=== PATIENT | female | born 1945 ===

== ENCOUNTER 2018-06-14 13:06 | Inpatient (IN) | payer MEDICARE, MEDICAID ==
--- NOTE | 2018-06-14 13:46 | ED PDOC ---
HPI: Psych/Substance Abuse Time Seen by Provider: 06/14/18 13:16 Chief Complaint (Nursing): Psychiatric Evaluation Chief Complaint (Provider): Psychiatric Evaluation History Per: Patient, Family (daughter at bedside) History/Exam Limitations: no limitations Onset/Duration Of Symptoms: Days (x1 month approximately) Current Symptoms Are (Timing): Still Present Additional Complaint(s): 73 year old female presents to the ED via EMS with daughter Julienne for a psychiatric evaluation. Patient states she does not want to use a sales support assistant and wants her daughter to translate, as patient is only Italian speaking. She notes she has been depressed for the past month with auditory hallucinations and negative thoughts telling her that her son is in danger and will , preventing her from sleeping at night. Patient reports "feeling down inside" lately. As per daughter, since 06/04 patient has been having intermittent 3-4 hour episodes of forgetfulness and "it seems as if she's zoned out." On 06/04 patient was seen at [facility] for these symptoms and had normal CT head, urine studies, and bloodwork and was subsequently discharged. She states patient followed up with her PMD 06/10/18 and was prescribed Lexapro, without relief of symptoms. Today, daughter additionally reports that the cable man came to their house and patient thought the man was trying to kidnap her grandson, so she called 911 on him. This episode prompted daughter to bring in patient for evaluation today. Otherwise, denies physical complaints, suicidal ideation, homicidal ideation, and visual hallucinations. PMD: [facility] Past Medical History Reviewed: Historical Data, Nursing Documentation, Vital Signs Vital Signs: Last Vital Signs Temp 98.6 F 06/14/18 13:08 Pulse 97 H 06/14/18 13:08 Resp 18 06/14/18 13:08 BP 168/84 H 06/14/18 13:08 Pulse Ox 97 06/14/18 13:08 - Medical History PMH: Depression (possible), HTN, Hypercholesterolemia - Surgical History Other surgeries: knee replacements - Family History Family History: States: Unknown Family Hx - Social History Current smoker - smoking cessation education provided: No Alcohol: None Drugs: Denies - Home Medications Home Medications: Ambulatory Orders Medication Instructions Recorded Escitalopram [Lexapro] 10 mg PO HS 06/14/18 Lisinopril/Hydrochlorothiazide 1 tab PO DAILY 06/14/18 [Lisinopril-Hctz 20-25 mg Tab] Simvastatin [Zocor] 20 mg PO HS 06/14/18 - Allergies Allergies/Adverse Reactions: Allergies Allergy/AdvReac Type Severity Reaction Status Date / Time No Known Allergies Allergy Verified 06/14/18 13:14 Review of Systems ROS Statement: Except As Marked, All Systems Reviewed And Found Negative Neurological: Positive for: Confusion (as per daughter, 3-4 hours at a time) Psych: Positive for: Depression, Other (auditory hallucinations, no visual hallucinations). Negative for: Suicidal ideation (or homicidal ideation) Physical Exam - Reviewed Nursing Documentation Reviewed: Yes Vital Signs Reviewed: Yes - Physical Exam Comments: GENERAL APPEARANCE: Patient is awake, alert, oriented x 3, in no acute distress. Resting comfortably. SKIN: Warm, dry; (-) cyanosis ENMT: Mucous membranes moist. Airway patent: (-) stridor. NECK: Supple HEART AND CARDIOVASCULAR: (-) irregularity CHEST AND RESPIRATORY: (-) rales, (-) rhonchi, (-) wheezes; breath sounds equal. Respirations even and nonlabored. ABDOMEN: Soft, (-) distention, (-) tenderness, (-) guarding. NEURO AND PSYCH: Mental status as above. fight manager: Grossly intact. Pupils equal and reactive; EOMI; (-) facial asymmetry. Speech: clear. Affect: calm, cooperative. - Laboratory Results Result Diagrams: 06/14/18 15:00 06/14/18 15:00 - ECG O2 Sat by Pulse Oximetry: 97 (RA) Pulse Ox Interpretation: Normal Medical Decision Making Medical Decision Making: Time: 1335 Initial Impression: psychiatric evaluation Initial Plan: --Crisis evaluation --Re-evaluation 1345 Crisis at bedside. 1420 Per crisis evaluation, patient to be admitted for dementia, depression, and an xiety per Dr Field. Additional orders placed for medical clearance. 1540 Patient resting comfortably on re-evaluation and requesting food tray. Daughter remains at bedside. EKG: ST @ 101, QTc 430 1610 Patient reporting increased anxiety. Patient hypertensive in ED although daughter at bedside states patient took her Lisinopril dose today. Labs demonstrate hyponatremia and hypochloremia. Case discussed with ED MD Salvador who recommends treatment with Lopressor 25mg PO. Lopressor and Xanax 0.25mg PO ordered. Consult placed to med credit and collections analyst, Dr Helton, who recommends admission to STEP floor with him on consult. Pending urine for medical clearance and repeat vitals. CXR: no acute disease as read by Javier MELVIN 1700 U/A with small leukocytes, (-) nitrate. Keflex 500mg PO and urine culture o rdered. Utox (-). 1725 [facility] resident, Dr Hoskins, at bedside. CXR radiology report follows: Date of service: 06/14/2018 HISTORY: psych admit COMPARISON: No prior. FINDINGS: LUNGS: No active pulmonary disease. PLEURA: No significant pleural effusion identified, no pneumothorax apparent. CARDIOVASCULAR: No atherosclerotic calcification present No radiographic findings to suggest acute or significant cardiovascular disease. OSSEOUS STRUCTURES: No significant abnormalities. VISUALIZED UPPER ABDOMEN: Normal. OTHER FINDINGS: None. IMPRESSION: No active disease. 1810 Repeat HR: 82 Repeat BP: 166/80 Patient is medically stable for psychiatric admission. Arrangements made for admission. Scribe Attestation: Documented by Vonda Rivas, acting as a scribe for Irena Herrera PA-C Provider Scribe Attestation: All medical record entries made by the Scribe were at my direction and personally dictated by me. I have reviewed the chart and agree that the record accurately reflects my personal performance of the history, physical exam, medical decision making, and the department course for this patient. I have also personally directed, reviewed, and agree with the discharge instructions and disposition. Disposition - Clinical Impression Clinical Impression: Depression, Dementia, Anxiety, Hyponatremia, Hypochloremia, Elevated blood pressure reading, Hypertension, UTI (urinary tract infection) - Patient ED Disposition Is Patient to be Admitted: Yes Counseled Patient/Family Regarding: Studies Performed, Diagnosis - Disposition Disposition Time: 14:20 Condition: STABLE - Pt Status Changed To: Hospital Disposition Of: Inpatient - Admit Certification Admit to Inpatient:: After my assessment, the patient will require hospitalization for at least two midnights. This is because of the severity of symptoms shown, intensity of services needed, and/or the medical risk in this patient being treated as an outpatient. - POA Present On Arrival: None
[2018-06-14 15:18] LABS: BASO % 0.5 % (0.0-2.0); EOS % 0.3 % (0.0-4.0); HEMOGLOBIN 13.2 g/dL (12.0-16.0); LYMPH # 1.2 K/uL (1.0-4.3); LYMPH % 11.4 % (20.0-40.0); MEAN CELL VOLUME 87.3 fl (81.0-99.0); MEAN CORPUSCULAR HEMOGLOBIN 29.8 pg (27.0-31.0); MEAN CORPUSCULAR HGB CONC 34.1 g/dL (33.0-37.0); MEAN PLATELET VOLUME 10.3 fl (7.2-11.7); MONO # 0.6 K/uL (0.0-0.8); MONO % 5.7 % (0.0-10.0); NEUT # 8.3 K/uL (1.8-7.0); NEUT % 82.1 % (50.0-75.0); RBC 4.43 Mil/uL (3.80-5.20); WHITE BLOOD COUNT 10.1 K/uL (4.8-10.8)
[2018-06-14 15:27] LABS: ALB/GLOB RATIO 1.3 (1.0-2.1); ALBUMIN 4.4 g/dL (3.5-5.0); ALT/SGPT 13 U/L (9-52); AST/SGOT 30 U/L (14-36); BLOOD UREA NITROGEN 18 mg/dl (7-17); CALCIUM 9.7 mg/dL (8.4-10.2); GFR NON-AFRICAN AMERICAN > 60
[2018-06-14 16:35] LABS: SQUAMOUS EPITHIAL 1 /hpf (0-5); URINE BACTERIA FEW (<OCC); URINE BILIRUBIN NEGATIVE (NEGATIVE); URINE BLOOD NEGATIVE (NEGATIVE); URINE CLARITY CLEAR (Clear); URINE COLOR YELLOW (YELLOW); URINE GLUCOSE (UA) NEG (NEGATIVE); URINE LEUKOCYTE ESTERASE SMALL Leu/uL (Negative); URINE PROTEIN NEGATIVE (NEGATIVE); URINE UROBILINOGEN 0.2-1.0 mg/dL (0.2-1.0)
[2018-06-14 16:45] LABS: BENZODIAZEPINES, UR NEGATIVE (NEGATIVE)
[2018-06-14 16:48] LABS: BARBITURATES, UR NEGATIVE (NEGATIVE); OPIATES, UR NEGATIVE (NEGATIVE); PHENCYCLIDINE, UR NEGATIVE (NEGATIVE)
--- NOTE | 2018-06-14 17:44 | RAD ---
Date of service: 06/14/2018 HISTORY: psych admit COMPARISON: No prior. FINDINGS: LUNGS: No active pulmonary disease. PLEURA: No significant pleural effusion identified, no pneumothorax apparent. CARDIOVASCULAR: No atherosclerotic calcification present No radiographic findings to suggest acute or significant cardiovascular disease. OSSEOUS STRUCTURES: No significant abnormalities. VISUALIZED UPPER ABDOMEN: Normal. OTHER FINDINGS: None. IMPRESSION: No active disease.
[2018-06-14 19:38] VITALS: O2SAT 97
[2018-06-14] MEDS ORDERED: Bismuth Subsalicylate 262 mg/15 ml Sus (240 ml) PO PRN (19:47)
[2018-06-14] MEDS ORDERED: Magnesium Hydroxide Susp 30 ml UD PO PRN (19:47)
[2018-06-14] MEDS ORDERED: Alum-Mag Hydrox-Simethicone Susp (30 mL) PO PRN (19:47)
--- NOTE | 2018-06-14 22:06 | PCM.BM ---
<CalebMichaelGiovani - Last Filed: 06/14/18 22:04> Treatment Plan Problems - Problems identified on initial assessmt Anxiety Date Initiated: 06/14/18 Time Initiated: 22:04 Assessment reference: NA Status: Active Altered Sleep Patterns Date Initiated: 06/14/18 Time Initiated: 22:05 Assessment reference: NA Status: Active Psychosis Date Initiated: 06/14/18 Time Initiated: 22:06 Assessment reference: NA Status: Active Treatment assets and liabiliti Patient Assests: cooperative, good support system, negotiates basic needs Patient Liabilities: imparied memory - Milieu Protocol Maintain good personal hygiene: every shift Encourage regular showers, every shift Remind patient to perform daily oral care, every shift Assist patient to perform ADL's Conduct patient checks and document Observation sheet: Q15 minutes Maintain personal safety: every shift Educate patient to report safety concerns to staff, every shift Monitor environment for contraband/sharps Medication safety: Monitor for expected outcome, potential side effects: every shift, Assess barriers to learning: every shift, Assess readiness for medication education: every shift <Marguerite Field - Last Filed: 06/15/18 11:28> - Diagnosis (1) Major depressive disorder with psychotic features Status: Acute Interventions: Medication management, Individual and group therapy, Psychoeducation 06/15/18 11:28 <Christel Umaña - Last Filed: 06/15/18 15:52> Family Contact Family involvement: Family/SO is involved Family contact: Patient agrees to contact, Family has been contacted by patient, Telephone contact initiated by staff Family contact name: Liz - daughter Family contacted how many times per week?: 2 - Goals for Treatment Patient goals for treatment: Pt will improve overall behvaior. Pt will reduce anxiety and improve coping skills. Pt will attend clinical/activity groups. Pt will be compliant with medications prescribed on the unit. Discharge/Continuing Care - Education Needs Education Needs: Family Medication, Family Diagnosis/Disease Process, Family Coping Skills, Family Placement options, Family Community resources, Family Activities of Daily Living, Family Health Practices/Safety, Family Personal Hygiene/Grooming, Family Aftercare Safety Plan, Patient Medication, Patient Diagnosis/Disease Process, Patient Coping Skills, Patient Placement options, Patient Community resources, Patient Activities of Daily Living, Patient Health Practices/Safety, Patient Personal Hygiene/Grooming, Patient Aftercare Safety Plan - Discharge Discharge Criteria: Tolerates medication w/o severe side effects, Free of paranoid thoughts, Free of agitation, Normal sleep pattern, Reduction of target symptoms Discharge to:: Home, With Family - Additional Comments 06/15/18 15:44 Pt seen and discussed in team meeting. Reason for hospitalization reviewed and discussed. Pt reported she was referred to the ED after she called the police. Pt reported she called the police because she felt anxious and in danger. Pt reported that she felt "trapped with all of my problems." Pt reported that her daughter, Delma in [place] is currently incarcerated because of drug trafficking and her daughter, Liz has been abusing substance abuses because "she is weird with me." Pt also reported that a cable david came to the home on 06/14/2018 and he was trying to "pressure my grandson." Pt reported she felt like her grandson was in danger and she called the police. Pt also reported that her grandson is being "touched" in school by other peers in a playful way, but he does not like it. Pt presents with increased paranoia. Pt reported feeling depressed because "of all my problems." Pt reported hearing voices, but refused to state what they are saying to her. Pt denied command auditory hallucinations. Pt presented with flight of ideas and circumstantial. Pt was tearful when talking about her grandson. Pt's medical issues reviewed and discussed. Pt's social issues reviewed. Pt's current medications reviewed by treating physician. Tx plan reviewed and discussed; pt verbalized agreement. SW to continue to follow case. Pt signed consent form for SW to contact pt's son and daughter fr collateral information. - Treatment Team Participation Discussed with Family/SO: Yes Was Patient/Family/SO present at Treatment Team Meeting: Yes
[2018-06-15 06:49] LABS: ALB/GLOB RATIO 1.4 (1.0-2.1); ALBUMIN 4.2 g/dL (3.5-5.0); ALT/SGPT 20 U/L (9-52); AST/SGOT 30 U/L (14-36); BLOOD UREA NITROGEN 15 mg/dl (7-17); CALCIUM 9.8 mg/dL (8.4-10.2); GFR NON-AFRICAN AMERICAN > 60; HDL CHOLESTEROL 43 MG/DL (30-70)
[2018-06-15 06:54] LABS: LDL CHOLESTEROL 95 mg/dL (0-129)
[2018-06-15 07:00] LABS: IRON 87 ug/dL (37-170)
[2018-06-15 07:09] LABS: % IRON SATURATION 26 % (20-55); TOTAL IRON BINDING CAPACITY 334 ug/dL (250-450)
[2018-06-15 07:18] LABS: FERRITIN 86.6 ng/Ml (11.1-264.0)
--- NOTE | 2018-06-15 08:41 | CARD ---
APPROVED REPORT Date of service: 06/14/2018 EKG Measurement Heart [id number] <Conclusion> Sinus tachycardia Possible Left atrial enlargement Nonspecific ST-T changes Abnormal ECG
[2018-06-15] MEDS ORDERED: Tmp-Smz 800 mg-160 mg DS Tab PO SCH (09:00)
--- NOTE | 2018-06-15 09:41 | PCM.PSYCH ---
Initial Psychiatric Evaluation - Initial Psychiatric Evaluation Type of Admission: Voluntary Legal Status: Capacity Chief Complaint (in patient's own words): "I was worried about my grandson." Patient's Reaction to Hospitalization: HPI: 73 yo female w/ h/o depression, presents w/ worsening depression, anxiety, and paranoia that someone wants to harm her grandson and recent auditory hallucinations. She denies acute AH/VH, but continues to express concerns for the safety of her grandson. She denies acute CAH/SI/HI. Patient reports compliance with Lexapro, which was prescribed by her PMD. Patient submitted a 48 hr letter requesting to be discharged. She is agreeable to outpatient follow-up and wants to leave to help care for her grandchild. Team will obtain collateral history from the family. PPHx: Denies past psychiatric treatment or hospitalizations. Receives Lexapro from her PMD. PMHx: HTN, HLD ALL: NKDA SHx: Lives with her family, from [place], denies drugs/etoh/cig use Current Medications: Active Medications Generic Name Dose Route Start Last Admin Trade Name Freq PRN Reason Stop Dose Admin Acetaminophen 650 mg 06/14/18 19:47 Tylenol 325mg Tab PO Q4 PRN Pain, moderate (4-7) Al Hydrox/Mg Hydrox/Simethicone 30 ml 06/14/18 19:47 Maalox Plus 30 Ml PO Q4 PRN Dyspepsia Amlodipine Besylate 5 mg 06/15/18 09:00 06/15/18 08:36 Norvasc PO 5 mg DAILY KELBY Administration Bismuth Subsalicylate 524 mg 06/14/18 19:47 Pepto-Bismol PO Q4 PRN Diarrhea Lisinopril 20 mg 06/15/18 09:00 06/15/18 08:37 Zestril PO 20 mg DAILY KELBY Administration Lorazepam 0.5 mg 06/14/18 19:47 Ativan PO 06/28/18 19:48 HS PRN Insomnia Lorazepam 0.5 mg 06/14/18 19:47 Ativan PO 06/28/18 19:48 Q6 PRN Anixety/Agitation Magnesium Hydroxide 30 ml 06/14/18 19:47 Milk Of Magnesia PO HS PRN Constipation Risperidone 0.5 mg 06/14/18 22:00 06/14/18 22:42 Risperdal Tab PO 0.5 mg HS KELBY Administration Past Psychiatric History - Past Psychiatric History Previous Treatment History: None Pertinent Medical Hx (Current Medical&Sleep Prob, Allergies): Allergies Allergy/AdvReac Type Severity Reaction Status Date / Time No Known Allergies Allergy Verified 06/14/18 13:14 Escitalopram [Lexapro] 10 mg PO HS 06/14/18 Lisinopril/Hydrochlorothiazide [Lisinopril-Hctz 20-25 mg Tab] 1 tab PO DAILY 06/14/18 Simvastatin [Zocor] 20 mg PO HS 06/14/18 Review of Systems - Psychiatric Psychiatric: As Per HPI, Anxiety, Behavioral Changes, Change in Appetite, Depression, Difficulty Concentrating, Hallucinations, Memory Loss, Paranoia Mental Status Examination - Personal Presentation Personal Presentation: Looks stated age - Affect Affect: Constricted - Motor Activity Motor Activity: Calm - Reliability in Providing Information Reliability in Providing Information: Fair - Speech Speech: Other (Circumstantial) - Mood Mood: Depressed, Anxious - Formal Thought Process Formal Thought Process: Paranoia - Obsessions/Compulsions Obsessions: No Compulsions: No - Cognitive Functions Orientation: Person, Place, Situation, Time Sensorium: Alert Judgement: Imparied, as evidence by: Lack of insight into illness Memory: Recent intact, as evidence by: Ability to recall events of the day - Risk Risk: Diminished functioning - Strength & Assets Inventory Strength & Assets Inventory: Cooperative - Limitations Limitations: Decreased memory, recent DSM 5 DX - DSM 5 DSM 5 Diagnosis: Major Depressive Disorder w/ Psychotic Features - Recommended/Plan of Treatment Treatment Recommendations and Plan of Treatment: Major Depressive Disorder with Psychotic Features -Admit to psychiatry unit -Continue Lexapro -Start Risperdal -Obtain collateral history from the patient's family -Medicine consult -Individual and group therapy -Psychoeducation -Disposition planning- patient submitted a 48 hr letter yesterday - Smoking Cessation Smoking Cessation Initiated: No Reason for not providing: Not indicated
--- NOTE | 2018-06-15 11:12 | CP.PCM.CON ---
<Jenelle Hoskins - Last Filed: 06/15/18 11:43> History of Present Illness - History of Present Illness History of Present Illness: Medicine Consult note: This is 73 y/o F with PMH of HTN, HLD and childhood kidney infection admitted to [facility]/ [facility] for evaluations and treatment of Anxiety/Psychosis. As per daughter, since 06/04 patient has been having intermittent 3-4 hour episodes of forgetfulness and "it seems as if she's zoned out." On 06/04 patient was seen at [facility] for these symptoms and had normal CT head, urine studies, and bloodwork and was subsequently discharged. She states patient followed up with her PMD 06/10/18 and was prescribed Lexapro, without relief of symptoms. As per daughter patient was behaving very unusual today, + Anxiety, + psychosis which prompted ER visit. Patient denies any SOB, chest pain, headache, palpitations, dizziness, abdominal pain, dysuria, suicidal ideation, homicidal ideation, or visual hallucinations. PMH: HTN, HLD and childhood kidney infection PSH: Knee replacement Allg: NKDA Meds: Statin, Lisinopril-HCTZ, lexapro SH: denies alcohol, smoking or drug use FH: Denies Past Patient History - Past Social History Alcohol: None Drugs: Denies - CARDIAC Hx Hypercholesterolemia: Yes Hx Hypertension: Yes - PULMONARY Hx Tuberculosis: No - NEUROLOGICAL HX Cerebrovascular Accident: No Hx Seizures: No - HEMATOLOGICAL/ONCOLOGICAL Hx Cancer: No Hx Human Immunodeficiency Virus (HIV): No - MUSCULOSKELETAL/RHEUMATOLOGICAL Hx Falls: Yes - GENITOURINARY/GYNECOLOGICAL Hx Sexually Transmitted Disorders: No - PSYCHIATRIC Hx Depression: Yes (possible) - ANESTHESIA Hx Anesthesia: No Hx Anesthesia Reactions: No Meds Allergies/Adverse Reactions: Allergies Allergy/AdvReac Type Severity Reaction Status Date / Time No Known Allergies Allergy Verified 06/14/18 13:14 - Medications Medications: Current Medications Acetaminophen (Tylenol 325mg Tab) 650 mg PO Q4 PRN PRN Reason: Pain, moderate (4-7) Al Hydrox/Mg Hydrox/Simethicone (Maalox Plus 30 Ml) 30 ml PO Q4 PRN PRN Reason: Dyspepsia Amlodipine Besylate (Norvasc) 5 mg PO DAILY [facility] Last Admin: 06/15/18 08:36 Dose: 5 mg Bismuth Subsalicylate (Pepto-Bismol) 524 mg PO Q4 PRN PRN Reason: Diarrhea Lisinopril (Zestril) 20 mg PO DAILY [facility] Last Admin: 06/15/18 08:37 Dose: 20 mg Lorazepam (Ativan) 0.5 mg PO HS PRN PRN Reason: Insomnia Stop: 06/28/18 19:48 Lorazepam (Ativan) 0.5 mg PO Q6 PRN PRN Reason: Anixety/Agitation Stop: 06/28/18 19:48 Magnesium Hydroxide (Milk Of Magnesia) 30 ml PO HS PRN PRN Reason: Constipation Risperidone (Risperdal Tab) 0.5 mg PO HS [facility] Last Admin: 06/14/18 22:42 Dose: 0.5 mg Physical Exam - Constitutional Appears: No Acute Distress - Head Exam Head Exam: NORMAL INSPECTION - Eye Exam Eye Exam: Normal appearance, PERRL Pupil Exam: NORMAL ACCOMODATION - ENT Exam ENT Exam: Mucous Membranes Moist, Normal Oropharynx - Neck Exam Neck exam: Positive for: Normal Inspection - Respiratory Exam Respiratory Exam: Clear to Auscultation Bilateral, NORMAL BREATHING PATTERN. absent: Rhonchi, Wheezes, Respiratory Distress - Cardiovascular Exam Cardiovascular Exam: Tachycardia, REGULAR RHYTHM, +S1, +S2 - GI/Abdominal Exam GI & Abdominal Exam: Normal Bowel Sounds, Soft. absent: Tenderness - Extremities Exam Extremities exam: Positive for: pedal pulses present. Negative for: tenderness Additional comments: Trace b/l LEs edema - Back Exam Back exam: NORMAL INSPECTION - Neurological Exam Neurological exam: Alert, CN II-XII Intact, Oriented x3 - Psychiatric Exam Psychiatric exam: Anxious - Skin Skin Exam: Normal Color Results - Vital Signs Recent Vital Signs: Last Vital Signs Temp 97.7 F 06/15/18 05:14 Pulse 83 06/15/18 08:37 Resp 19 06/15/18 05:14 BP 164/80 H 06/15/18 08:37 Pulse Ox 97 06/14/18 19:42 - Labs Result Diagrams: 06/14/18 15:00 06/15/18 06:05 Labs: Laboratory Results - last 24 hr 06/14/18 06/14/18 06/14/18 15:00 15:00 16:01 WBC 10.1 RBC 4.43 Hgb 13.2 Hct 38.7 MCV 87.3 MCH 29.8 MCHC 34.1 RDW 13.0 Plt Count 184 MPV 10.3 Neut % (Auto) 82.1 H Lymph % (Auto) 11.4 L Dukes % (Auto) 5.7 Eos % (Auto) 0.3 Baso % (Auto) 0.5 Neut # (Auto) 8.3 H Lymph # (Auto) 1.2 Dukes # (Auto) 0.6 Eos # (Auto) 0.0 Baso # (Auto) 0.0 Sodium 127 L Potassium 3.9 Chloride 91 L Carbon Dioxide 24 Anion Gap 16 BUN 18 H Creatinine 0.9 Est GFR ( Amer) > 60 Est GFR (Non-Af Amer) > 60 Random Glucose 119 H Calcium 9.7 Iron TIBC % Saturation Ferritin Total Bilirubin 0.4 AST 30 ALT 13 Alkaline Phosphatase 98 Total Protein 7.7 Albumin 4.4 Globulin 3.3 Albumin/Globulin Ratio 1.3 Triglycerides Cholesterol LDL Cholesterol Direct HDL Cholesterol Vitamin B12 Free T4 Thyroxine (T4) TSH 3rd Generation Urine Color Urine Clarity Urine pH Ur Specific [place] Urine Protein Urine Glucose (UA) Urine Ketones Urine Blood Urine Nitrate Urine Bilirubin Urine Urobilinogen Ur Leukocyte Esterase Urine RBC (Auto) Urine Microscopic WBC Ur Squamous Epith Cells Urine Bacteria Urine Opiates Screen Negative Urine Methadone Screen Negative Ur Barbiturates Screen Negative Ur Phencyclidine Scrn Negative Ur Amphetamines Screen Negative U Benzodiazepines Scrn Negative U Oth Cocaine Metabols Negative U Cannabinoids Screen Negative Alcohol, Quantitative < 10 06/14/18 06/15/18 06/15/18 16:01 06:05 06:05 WBC RBC Hgb Hct MCV MCH MCHC RDW Plt Count MPV Neut % (Auto) Lymph % (Auto) Dukes % (Auto) Eos % (Auto) Baso % (Auto) Neut # (Auto) Lymph # (Auto) Dukes # (Auto) Eos # (Auto) Baso # (Auto) Sodium 130 L Potassium 4.1 Chloride 92 L Carbon Dioxide 27 Anion Gap 15 BUN 15 Creatinine 0.9 Est GFR ( Amer) > 60 Est GFR (Non-Af Amer) > 60 Random Glucose 114 H Calcium 9.8 Iron 87 TIBC 334 % Saturation 26 Ferritin 86.6 Total Bilirubin 0.5 AST 30 ALT 20 Alkaline Phosphatase 87 Total Protein 7.3 Albumin 4.2 Globulin 3.1 Albumin/Globulin Ratio 1.4 Triglycerides 119 Cholesterol 171 LDL Cholesterol Direct 95 HDL Cholesterol 43 Vitamin B12 874 Free T4 Thyroxine (T4) 9.59 TSH 3rd Generation 0.90 Urine Color Yellow Urine Clarity Clear Urine pH 6.0 Ur Specific [place] 1.010 Urine Protein Negative Urine Glucose (UA) Neg Urine Ketones Trace Urine Blood Negative Urine Nitrate Negative Urine Bilirubin Negative Urine Urobilinogen 0.2-1.0 Ur Leukocyte Esterase Small Urine RBC (Auto) 3 Urine Microscopic WBC 6 H Ur Squamous Epith Cells 1 Urine Bacteria Few H Urine Opiates Screen Urine Methadone Screen Ur Barbiturates Screen Ur Phencyclidine Scrn Ur Amphetamines Screen U Benzodiazepines Scrn U Oth Cocaine Metabols U Cannabinoids Screen Alcohol, Quantitative 06/15/18 06:05 WBC RBC Hgb Hct MCV MCH MCHC RDW Plt Count MPV Neut % (Auto) Lymph % (Auto) Dukes % (Auto) Eos % (Auto) Baso % (Auto) Neut # (Auto) Lymph # (Auto) Dukes # (Auto) Eos # (Auto) Baso # (Auto) Sodium Potassium Chloride Carbon Dioxide Anion Gap BUN Creatinine Est GFR ( Amer) Est GFR (Non-Af Amer) Random Glucose Calcium Iron TIBC % Saturation Ferritin Total Bilirubin AST ALT Alkaline Phosphatase Total Protein Albumin Globulin Albumin/Globulin Ratio Triglycerides Cholesterol LDL Cholesterol Direct HDL Cholesterol Vitamin B12 Free T4 1.35 Thyroxine (T4) TSH 3rd Generation Urine Color Urine Clarity Urine pH Ur Specific [place] Urine Protein Urine Glucose (UA) Urine Ketones Urine Blood Urine Nitrate Urine Bilirubin Urine Urobilinogen Ur Leukocyte Esterase Urine RBC (Auto) Urine Microscopic WBC Ur Squamous Epith Cells Urine Bacteria Urine Opiates Screen Urine Methadone Screen Ur Barbiturates Screen Ur Phencyclidine Scrn Ur Amphetamines Screen U Benzodiazepines Scrn U Oth Cocaine Metabols U Cannabinoids Screen Alcohol, Quantitative Assessment & Plan - Assessment and Plan (Free Text) Assessment: A/P: 73 y/o F with PMH of HTN, HLD and childhood kidney infection admitted to [facility]/ [facility] for evaluations and treatment of Anxiety/Psychosis. Medical consult for HTN and Hyponatremia. HTN, Chronic, Uncontrolled - START Lisinopril 40 daily - START Norvasc 5mg daily - STOP HCTZ, may be causing her hyponatremia - Echo to evaluate heart: Long standing uncontrolled HTN and Trace LEs edema - Continue monitoring BP Hyponatremia, Acute - Improved - STOP HCTZ for now - Will continue monitoring Psychosis/Anxiety - Continue management as per psych DVT PPX: Ambulatory Case discussed and patient seen with Dr. Helton <Kam Helton - Last Filed: 06/16/18 11:37> Meds - Medications Medications: Current Medications Acetaminophen (Tylenol 325mg Tab) 650 mg PO Q4 PRN PRN Reason: Pain, moderate (4-7) Al Hydrox/Mg Hydrox/Simethicone (Maalox Plus 30 Ml) 30 ml PO Q4 PRN PRN Reason: Dyspepsia Amlodipine Besylate (Norvasc) 5 mg PO DAILY [facility] Last Admin: 06/16/18 09:10 Dose: 5 mg Bismuth Subsalicylate (Pepto-Bismol) 524 mg PO Q4 PRN PRN Reason: Diarrhea Escitalopram Oxalate (Lexapro) 10 mg PO DAILY [facility] Last Admin: 06/16/18 09:10 Dose: 10 mg Lisinopril (Zestril) 40 mg PO DAILY [facility] Magnesium Hydroxide (Milk Of Magnesia) 30 ml PO HS PRN PRN Reason: Constipation Risperidone (Risperdal M-Tab) 1 mg PO HS [facility] Last Admin: 06/15/18 21:05 Dose: 1 mg Results - Vital Signs Recent Vital Signs: Last Vital Signs Temp 97.1 F L 06/16/18 06:00 Pulse 75 06/16/18 10:23 Resp 18 06/16/18 06:00 BP 122/74 06/16/18 10:23 Pulse Ox 97 06/14/18 19:42 - Labs Result Diagrams: 06/14/18 15:00 06/16/18 04:00 Labs: Laboratory Results - last 24 hr 06/15/18 06/15/18 06/15/18 06:05 06:05 06:05 Sodium Potassium Chloride Carbon Dioxide Anion Gap BUN Creatinine Est GFR ( Amer) Est GFR (Non-Af Amer) Random Glucose Hemoglobin A1c 5.7 Calcium Folate > 20.0 RPR Nonreactive 06/16/18 04:00 Sodium 130 L Potassium 4.6 Chloride 92 L Carbon Dioxide 26 Anion Gap 17 BUN 31 H Creatinine 1.2 Est GFR ( Amer) 53 Est GFR (Non-Af Amer) 44 Random Glucose 102 Hemoglobin A1c Calcium 9.5 Folate RPR Assessment & Plan - Assessment and Plan (Free Text) Assessment: Patient was personally seen and examined by me in rounds with residents. Available labs and diagnostic data reviewed. Case, Patient's condition and management plan discussed with residents in rounds. Agree with resident's progress note. Plan: As ordered.
[2018-06-15 13:14] LABS: FOLATE > 20.0 ng/mL
[2018-06-15] MEDS ORDERED: Risperidone M tab 0.5MG PO PRN (13:50)
[2018-06-15] MEDS: Risperidone M tab 1 MG PO SCH (21:05)
[2018-06-16 08:50] LABS: CALCIUM 9.5 mg/dL (8.4-10.2)
--- NOTE | 2018-06-16 08:59 | CARD ---
APPROVED REPORT Date of service: 06/15/2018 EXAM: Two-dimensional and M-mode echocardiogram with Doppler and color Doppler. Other Information Quality : GoodRhythm : NSR INDICATION Hypertension/HCVD 2D DIMENSIONS IVSd1.09 (0.7-1.1cm)LVDd3.93 (3.9-5.9cm) LVOT Diameter1.96 (1.8-2.4cm)PWd1.13 (0.7-1.1cm) IVSs1.49 (0.8-1.2cm)LVDs2.93 (2.5-4.0cm) FS (%) 25.2 %PWs1.35 (0.8-1.2cm) M-Mode DIMENSIONS Left Atrium (MM)4.26 (2.5-4.0cm)IVSd1.06 (0.7-1.1cm) Aortic Root2.79 (2.2-3.7cm)LVDd4.88 (4.0-5.6cm) Aortic Cusp Exc.1.68 (1.5-2.0cm)PWd1.03 (0.7-1.1cm) IVSs1.68 cmFS (%) 44 % LVDs2.74 (2.0-3.8cm)PWs1.47 cm Aortic Valve AoV Peak Nyfflswh801.8cm/sAoV VTI22.9cmAO Peak GR.6mmHg LVOT Peak Zwjzkfnw73.8cm/sLVOT VTI17.37cmAO Mean GR.3mmHg ISAK (VMAX)1.60ii2JUN (VTI)1.15cm2 Mitral Valve MV E Uyfrwslm43.6cm/sMV DECEL [id number] A Oacovojo03.3cm/s MV YGV68xvT/A ratio0.6MVA (PHT)2.54cm2 TDI Lateral E' Peak V8.80cm/sMedial E' Peak V4.56cm/sE/Lateral E'6.0 E/Medial E'11.5 Tricuspid Valve TR Peak Oajiisgy521kl/sRAP STCXZKED60ugQkCM Peak Gr.19mmHg YAHK80prUl LEFT VENTRICLE The left ventricle is normal size. There is normal left ventricular wall thickness. The left ventricular systolic function is normal. The estimated ejection fraction is 55-60% No regional wall motion abnormalities noted.. Transmitral Doppler flow pattern is Grade I-abnormal relaxation pattern. No left ventricle thrombus noted on this study. There is no ventricular septal defect visualized. There is no left ventricular aneurysm. There is no mass noted in the left ventricle. RIGHT VENTRICLE The right ventricle is normal size. There is normal right ventricular wall thickness. The right ventricular systolic function is normal. ATRIA The left atrium is mildly dilated. The right atrium size is normal. The interatrial septum is intact with no evidence for an atrial septal defect. AORTIC VALVE The aortic valve is normal in structure. No aortic regurgitation is present. There is no aortic valvular stenosis. There is no aortic valvular vegetation. MITRAL VALVE The mitral valve is normal in structure. There is no evidence of mitral valve prolapse. There is no mitral valve stenosis. There is mild mitral valve regurgitation noted. TRICUSPID VALVE The tricuspid valve is normal in structure. There is mild tricuspid valve regurgitation noted. RVSP is calculated at 24 mm Hg. There is no tricuspid valve prolapse or vegetation. There is no tricuspid valve stenosis. PULMONIC VALVE The pulmonary valve is normal in structure. There is no pulmonic valvular regurgitation. There is no pulmonic valvular stenosis. GREAT VESSELS The aortic root is normal in size. The ascending aorta is normal in size. The pulmonary artery is normal. The IVC is normal in size and collapses >50% with inspiration. PERICARDIAL EFFUSION There is no pericardial effusion. There is no pleural effusion. <Conclusion> The estimated ejection fraction is 55-60% Transmitral Doppler flow pattern is Grade I-abnormal relaxation pattern. The left atrium is mildly dilated. There is mild mitral valve regurgitation noted. There is mild tricuspid valve regurgitation noted. RVSP is calculated at 24 mm Hg.
--- NOTE | 2018-06-16 09:58 | CP.PCM.PN ---
<Jenelle Hoskins - Last Filed: 06/16/18 10:02> Subjective - Date & Time of Evaluation Date of Evaluation: 06/16/18 Time of Evaluation: 09:55 - Subjective Subjective: Patient seen and examined this morning at bedside. NAD, No acute event overnight, denies any dysuria, abdominal pain, SOb, chest pain, dizziness or weakness. Denies any SI/HI + leuk in UA, patient is asymptomatic, will treat patient if Ucx + Hyponatremia: improved, hold HCTZ, c/w regular diet, no additional treatment for now Objective - Vital Signs/Intake and Output Vital Signs (last 24 hours): Temp Pulse Resp BP Pulse Ox 97.1 F L 91 H 18 119/76 97 06/16/18 06:00 06/16/18 09:35 06/16/18 06:00 06/16/18 09:35 06/14/18 19:42 - Medications Medications: Current Medications Acetaminophen (Tylenol 325mg Tab) 650 mg PO Q4 PRN PRN Reason: Pain, moderate (4-7) Al Hydrox/Mg Hydrox/Simethicone (Maalox Plus 30 Ml) 30 ml PO Q4 PRN PRN Reason: Dyspepsia Amlodipine Besylate (Norvasc) 5 mg PO DAILY [facility] Last Admin: 06/16/18 09:10 Dose: 5 mg Bismuth Subsalicylate (Pepto-Bismol) 524 mg PO Q4 PRN PRN Reason: Diarrhea Escitalopram Oxalate (Lexapro) 10 mg PO DAILY [facility] Last Admin: 06/16/18 09:10 Dose: 10 mg Lisinopril (Zestril) 40 mg PO DAILY [facility] Magnesium Hydroxide (Milk Of Magnesia) 30 ml PO HS PRN PRN Reason: Constipation Risperidone (Risperdal M-Tab) 1 mg PO HS [facility] Last Admin: 06/15/18 21:05 Dose: 1 mg - Labs Labs: 06/14/18 15:00 06/16/18 04:00 - Constitutional Appears: No Acute Distress - Head Exam Head Exam: NORMAL INSPECTION - Eye Exam Eye Exam: Normal appearance Pupil Exam: NORMAL ACCOMODATION - ENT Exam ENT Exam: Mucous Membranes Moist - Neck Exam Neck Exam: Normal Inspection - Respiratory Exam Respiratory Exam: Clear to Ausculation Bilateral, NORMAL BREATHING PATTERN. absent: Rhonchi, Wheezes - Cardiovascular Exam Cardiovascular Exam: REGULAR RHYTHM, +S1, +S2 - GI/Abdominal Exam GI & Abdominal Exam: Soft, Normal Bowel Sounds. absent: Tenderness, Rebound - Exam Additional comments: No suprapubic tenderness - Extremities Exam Extremities Exam: Normal Inspection - Back Exam Back Exam: NORMAL INSPECTION - Neurological Exam Neurological Exam: Alert, Awake, Oriented x3 - Psychiatric Exam Psychiatric exam: Normal Affect - Skin Skin Exam: Normal Color Assessment and Plan - Assessment and Plan (Free Text) Assessment: A/P: 73 y/o F with PMH of HTN, HLD and childhood kidney infection admitted to [facility]/ [facility] for evaluations and treatment of Anxiety/Psychosis. Medical consult for HTN and Hyponatremia. HTN, Chronic, Uncontrolled - START Lisinopril 40 daily (Hold for BP < 120 Systolic) - START Norvasc 5mg daily - STOP HCTZ, may be causing her hyponatremia - Echo to evaluate heart: EF 55-60% - Continue monitoring BP Hyponatremia, Acute - Improved - STOP HCTZ for now - Will continue monitoring, no additional treatment at this time Urine Leukocyte positive - Asymptomatic - Treat if Ucx comes back positive Psychosis/Anxiety - Continue management as per psych DVT PPX: Ambulatory Case discussed and patient seen with Dr. Helton <Kam Helton - Last Filed: 06/16/18 11:34> Objective - Vital Signs/Intake and Output Vital Signs (last 24 hours): Temp Pulse Resp BP Pulse Ox 97.1 F L 75 18 122/74 97 06/16/18 06:00 06/16/18 10:23 06/16/18 06:00 06/16/18 10:23 06/14/18 19:42 - Medications Medications: Current Medications Acetaminophen (Tylenol 325mg Tab) 650 mg PO Q4 PRN PRN Reason: Pain, moderate (4-7) Al Hydrox/Mg Hydrox/Simethicone (Maalox Plus 30 Ml) 30 ml PO Q4 PRN PRN Reason: Dyspepsia Amlodipine Besylate (Norvasc) 5 mg PO DAILY [facility] Last Admin: 06/16/18 09:10 Dose: 5 mg Bismuth Subsalicylate (Pepto-Bismol) 524 mg PO Q4 PRN PRN Reason: Diarrhea Escitalopram Oxalate (Lexapro) 10 mg PO DAILY [facility] Last Admin: 06/16/18 09:10 Dose: 10 mg Lisinopril (Zestril) 40 mg PO DAILY [facility] Magnesium Hydroxide (Milk Of Magnesia) 30 ml PO HS PRN PRN Reason: Constipation Risperidone (Risperdal M-Tab) 1 mg PO HS [facility] Last Admin: 06/15/18 21:05 Dose: 1 mg - Labs Labs: 06/14/18 15:00 06/16/18 04:00 Assessment and Plan - Assessment and Plan (Free Text) Assessment: Patient was personally seen and examined by me in rounds with residents. Available labs and diagnostic data reviewed. Case, Patient's condition and management plan discussed with residents in rounds. Agree with resident's progress note. Plan: As ordered.
--- NOTE | 2018-06-16 10:22 | PCM.PYCHPN ---
Psychiatric Progress Note - Psychiatric Progress Note Patient seen today, length of contact: Pt evaluated, case discussed w/ team, chart reviewed Patient Chief Complaint: "I was worried about my grandson." Problems Identified/Issues Discussed: Patient retracted her 48 hr letter and is agreeable to continued psychiatric treatment. Collateral history was obtained from the patient's daughter through a meeting with the mental health social worker. Patient has been increasing para noid/psychotic w/ patient family prior to admission. See below SW () note: --- [employer] Tight met wit pt's daughter, Liz ([phone]) and additional collateral information obtained. Pt's daughter reported hx of depression treated by pt's PMD, Dr. Dean Chavez. Pt's daughter reported on 06/05/2018 pt woke up disoriented, confused, and hallucinating. Per daughter, pt reported seeing a man following her and repeatedly asking the daughter if she heard what the man was saying to her. Daughter reported she attempted to employ reality testing; however, pt was not responding and became irritable with daughter. Daughter also reported that pt was talking about the devil and believed that her son, Salvador was because of his diabetes. Daughter reported that pt was taken to [facility] ED on 06/05/2018 for a medical evaluation and pt was discharged back home. Daughter reported that 06/06/2018 and took pt to follow up with her pMD and was prescribed Lexapro 10mg. Daughter reported that pt was less irritable and that night was able to fall asleep. Pt's daughter reported that all of last week pt seemed to be fine, until yesterday, 06/14/2018. Daughter reported that she was at work when she received a telephone call from her son, Cb stating that pt was "acting weird." Daughter reported she later received a telephone call from the [employer] david at the home accusing him of wanting to take her son. Pt's daughter reported that she then called the police and ambulance and pt was referred tot he ED for an evaluation. Daughter reported she was informed by her son that pt was grabbing him and telling him that the jeremy david was going to harm him and that they needed to leave the house. Pt's daughter reported that pt manages her own medications and goes to her own medical appointments. Daughter also reported that she is not a substance abuser, instead works as a LIBRARY SERVICES COORDINATOR for [employer] and that her sister, Delma who resides in [place] is not incarcerated fr drug trafficking and does not use substances wither. Per daughter, recently pt's sleep is poor. Daughter also reported that while in the ED pt was observed to be taking her clothes on and off. Pt's progress and bx on the unit reviewed and discussed with daughter. Barrel Inspector Tight informed daughter that pt signed a 48 hour notice intent to lave at 945AM because she believes her grandson, Cb is in danger. Pt's daughter assured that pt's grandson is not in danger and even denied Cb being touched inappropriately in school. 48 hour notice explained to daughter and she verbalized that she will talk to pt and see if pt is willing to withdraw the notice. Bar[employer] Inspector Tight reviewed tx plan with daughter and advised that pt is agreeable to Risperdal and increase of Lexapro. daughter verbalized agreement and reported she just wants pt to get better. Daughter denied any recent memory loss or impairment prior to June 04. --- At this time, patient continues to express paranoia, but she is less pressured about her paranoid delusions and is questioning if she was just confused. She is calm and cooperative. She denies adverse effects to medications. Medication Change: No Medical Record Reviewed: Yes Consults ordered or reviewed: Medicine consult Mental Status Examination - Cognitive Function Orientation: Person, Place, Situation, Time Decription of patient's judgement and insights: Poor I/J - Mood Mood: Depressed, Anxious - Affect Affect: Constricted - Formal Thought Process Formal Thought Process: Paranoia Psychotic Thoughts and Behaviors: +Paranoia - Suicidal Ideation Suicidal Ideation: No - Homicidal Ideation Homicidal Ideation: No Goal/Treatment Plan - Goal/Treatment Plan Need for Continued Stay: Remain at risks for inpatient hospitalization, Severe depression anxiety Progress Toward Problem(s) and Goals/Treatment Plan: Major Depressive Disorder with Psychotic Features -Continue Lexapro -Continue Risperdal -Medicine consult -Psychology consult -Individual and group therapy -Psychoeducation -Disposition planning
[2018-06-16] MEDS: Risperidone M tab 1 MG PO SCH (21:05)
[2018-06-17 07:18] LABS: BLOOD UREA NITROGEN 23 mg/dl (7-17); CALCIUM 9.5 mg/dL (8.4-10.2); GFR NON-AFRICAN AMERICAN 54
--- NOTE | 2018-06-17 07:58 | CP.PCM.CON ---
History of Present Illness - History of Present Illness History of Present Illness: Pt is a 73 year old female admitted to [facility] and referred to the sign writer letterer or painter for evaluation. ON the DRS, Pt scored an overall score of 132. PT scored within normal limits on all tasks. Pt's Attention, Construction, Conceptualization, Memory and Initation skills all fell within normal limits. Overall 132 Attention 36 Construction 5 Conceptualization 36 Memory 19 Initation 36 Social work and nursing consulted regarding her functioning and status in review of the discharge plan. thank you for this referral, Dr. Mcdonald Past Patient History - Past Social History Alcohol: None Drugs: Denies - CARDIAC Hx Hypercholesterolemia: Yes Hx Hypertension: Yes - PULMONARY Hx Tuberculosis: No - NEUROLOGICAL HX Cerebrovascular Accident: No Hx Seizures: No - HEMATOLOGICAL/ONCOLOGICAL Hx Cancer: No Hx Human Immunodeficiency Virus (HIV): No - MUSCULOSKELETAL/RHEUMATOLOGICAL Hx Falls: Yes - GENITOURINARY/GYNECOLOGICAL Hx Sexually Transmitted Disorders: No - PSYCHIATRIC Hx Depression: Yes (possible) - ANESTHESIA Hx Anesthesia: No Hx Anesthesia Reactions: No Meds Allergies/Adverse Reactions: Allergies Allergy/AdvReac Type Severity Reaction Status Date / Time No Known Allergies Allergy Verified 06/14/18 13:14 - Medications Medications: Current Medications Acetaminophen (Tylenol 325mg Tab) 650 mg PO Q4 PRN PRN Reason: Pain, moderate (4-7) Al Hydrox/Mg Hydrox/Simethicone (Maalox Plus 30 Ml) 30 ml PO Q4 PRN PRN Reason: Dyspepsia Amlodipine Besylate (Norvasc) 5 mg PO DAILY [facility] Last Admin: 06/16/18 09:10 Dose: 5 mg Bismuth Subsalicylate (Pepto-Bismol) 524 mg PO Q4 PRN PRN Reason: Diarrhea Escitalopram Oxalate (Lexapro) 10 mg PO DAILY [facility] Last Admin: 06/16/18 09:10 Dose: 10 mg Lisinopril (Zestril) 10 mg PO DAILY [facility] Magnesium Hydroxide (Milk Of Magnesia) 30 ml PO HS PRN PRN Reason: Constipation Risperidone (Risperdal M-Tab) 1 mg PO HS [facility] Last Admin: 06/16/18 21:05 Dose: 1 mg Results - Vital Signs Recent Vital Signs: Last Vital Signs Temp 98.1 F 06/17/18 06:00 Pulse 76 06/17/18 06:00 Resp 18 06/17/18 06:00 BP 130/78 06/17/18 06:00 Pulse Ox 97 06/14/18 19:42 - Labs Result Diagrams: 06/14/18 15:00 06/17/18 06:30 Labs: Laboratory Results - last 24 hr 06/16/18 06/17/18 04:00 06:30 Sodium 130 L 132 Potassium 4.6 4.9 Chloride 92 L 94 L Carbon Dioxide 26 27 Anion Gap 17 16 BUN 31 H 23 H Creatinine 1.2 1.0 Est GFR ( Amer) 53 > 60 Est GFR (Non-Af Amer) 44 54 Random Glucose 102 99 Calcium 9.5 9.5 Phosphorus 4.3 Magnesium 2.0
--- NOTE | 2018-06-17 08:32 | CP.PCM.PN ---
Subjective - Date & Time of Evaluation Date of Evaluation: 06/17/18 Time of Evaluation: 07:00 - Subjective Subjective: Patient seen and examined this morning at bedside. NAD, denies any acute event overnight, no urinary symptoms, superapubic tenderness, headache, dizziness, chest pain or SOB/Palpitations. Hyponatremia: Resolved Ucx reviewed: Contaminated with only 10-50,000 species and patient is asymptomatic: will not treat or repeat Ucx for now. Objective - Vital Signs/Intake and Output Vital Signs (last 24 hours): Temp Pulse Resp BP Pulse Ox 98.1 F 76 18 130/78 97 06/17/18 06:00 06/17/18 06:00 06/17/18 06:00 06/17/18 06:00 06/14/18 19:42 - Medications Medications: Current Medications Acetaminophen (Tylenol 325mg Tab) 650 mg PO Q4 PRN PRN Reason: Pain, moderate (4-7) Al Hydrox/Mg Hydrox/Simethicone (Maalox Plus 30 Ml) 30 ml PO Q4 PRN PRN Reason: Dyspepsia Amlodipine Besylate (Norvasc) 5 mg PO DAILY [facility] Last Admin: 06/16/18 09:10 Dose: 5 mg Bismuth Subsalicylate (Pepto-Bismol) 524 mg PO Q4 PRN PRN Reason: Diarrhea Escitalopram Oxalate (Lexapro) 10 mg PO DAILY [facility] Last Admin: 06/16/18 09:10 Dose: 10 mg Lisinopril (Zestril) 10 mg PO DAILY [facility] Magnesium Hydroxide (Milk Of Magnesia) 30 ml PO HS PRN PRN Reason: Constipation Risperidone (Risperdal M-Tab) 1 mg PO HS [facility] Last Admin: 06/16/18 21:05 Dose: 1 mg - Labs Labs: 06/14/18 15:00 06/17/18 06:30 - Constitutional Appears: No Acute Distress - Head Exam Head Exam: NORMAL INSPECTION - Eye Exam Eye Exam: Normal appearance Pupil Exam: NORMAL ACCOMODATION - ENT Exam ENT Exam: Mucous Membranes Moist - Neck Exam Neck Exam: Normal Inspection - Respiratory Exam Respiratory Exam: Clear to Ausculation Bilateral, NORMAL BREATHING PATTERN - Cardiovascular Exam Cardiovascular Exam: REGULAR RHYTHM, +S1, +S2 - GI/Abdominal Exam GI & Abdominal Exam: Soft, Normal Bowel Sounds. absent: Guarding, Rigid, Tenderness, Rebound - Extremities Exam Extremities Exam: Full ROM, Normal Capillary Refill, Normal Inspection - Back Exam Back Exam: NORMAL INSPECTION - Neurological Exam Neurological Exam: Alert, Awake, CN II-XII Intact, Oriented x3 - Psychiatric Exam Psychiatric exam: Normal Affect - Skin Skin Exam: Normal Color Assessment and Plan - Assessment and Plan (Free Text) Assessment: A/P: 73 y/o F with PMH of HTN, HLD and childhood kidney infection admitted to [facility] for evaluations and treatment of Anxiety/Psychosis. Medical consult for HTN and Hyponatremia. HTN, Chronic, Uncontrolled - C/w Norvasc 5mg daily - Change Lisinopril to 10mg for now - STOP HCTZ, :hyponatremia - Echo to evaluate heart: EF 55-60% - Continue monitoring BP Hyponatremia, Acuten caused by HCTZ use - Improved/Resolved - STOP HCTZ for now, change BP medications - Will continue monitoring, no additional treatment at this time Urine Leukocyte positive - Asymptomatic - Ucx reviewed: Contaminated with only 10-50,000 species and patient is asymptomatic: will not treat or repeat Ucx for now Psychosis/Anxiety - Continue management as per psych DVT PPX: Ambulatory
--- NOTE | 2018-06-17 13:15 | PCM.PYCHPN ---
Psychiatric Progress Note - Psychiatric Progress Note Patient seen today, length of contact: Pt evaluated, case discussed w/ team, chart reviewed Patient Chief Complaint: "I was worried about my grandson." Problems Identified/Issues Discussed: Patient is calm and cooperative. Hyponatremia has resolved. She is currently A + O x 3. Seen by psychology consult this morning. She reports feeling less paranoid. She reports that her mood is improving. No acute AH/VH/SI/HI. Medication Change: No Medical Record Reviewed: Yes Consults ordered or reviewed: Medicine consult Mental Status Examination - Cognitive Function Orientation: Person, Place, Situation, Time Memory: Intact Decription of patient's judgement and insights: Improving I/J - Mood Mood: Depressed, Anxious - Affect Affect: Constricted - Formal Thought Process Formal Thought Process: Paranoia Psychotic Thoughts and Behaviors: resolving paranoia - Suicidal Ideation Suicidal Ideation: No - Homicidal Ideation Homicidal Ideation: No Goal/Treatment Plan - Goal/Treatment Plan Need for Continued Stay: Remain at risks for inpatient hospitalization, Severe depression anxiety Progress Toward Problem(s) and Goals/Treatment Plan: Major Depressive Disorder with Psychotic Features; Hyponatremia, now improved -Continue Lexapro -Continue Risperdal -Medicine consult -Psychology consult appreciated -Individual and group therapy -Psychoeducation -Disposition planning Estimated Date of D/C: 06/20/18
[2018-06-17] MEDS: Risperidone M tab 1 MG PO SCH (21:01)
--- NOTE | 2018-06-18 09:57 | PCM.PYCHPN ---
Psychiatric Progress Note - Psychiatric Progress Note Patient seen today, length of contact: Pt evaluated, case discussed w/ team, chart reviewed Patient Chief Complaint: pt has been less depressed and les anxious and denies side effects to meds . Medication Change: No Medical Record Reviewed: Yes Mental Status Examination - Cognitive Function Orientation: Person, Place, Situation, Time Memory: Intact Attention: Poor Concentration: Poor Association: WNL Fund of Knowledge: WNL - Mood Mood: Depressed, Anxious - Affect Affect: Constricted - Formal Thought Process Formal Thought Process: Paranoia - Suicidal Ideation Suicidal Ideation: No - Homicidal Ideation Homicidal Ideation: No Goal/Treatment Plan - Goal/Treatment Plan Need for Continued Stay: Remain at risks for inpatient hospitalization (Apt ), Severe depression anxiety Progress Toward Problem(s) and Goals/Treatment Plan: will continue to stabilize the mood with meds and engage pt in therapy Disposition as per dr dale Estimated Date of D/C: 06/20/18
--- NOTE | 2018-06-18 10:09 | PCM.PYCHPN ---
Psychiatric Progress Note - Psychiatric Progress Note Patient seen today, length of contact: Pt evaluated, case discussed w/ team, chart reviewed Medication Change: No Medical Record Reviewed: Yes Mental Status Examination - Cognitive Function Orientation: Person, Place, Situation, Time Memory: Intact - Mood Mood: Depressed, Anxious - Affect Affect: Constricted - Formal Thought Process Formal Thought Process: Paranoia - Suicidal Ideation Suicidal Ideation: No - Homicidal Ideation Homicidal Ideation: No Goal/Treatment Plan - Goal/Treatment Plan Need for Continued Stay: Remain at risks for inpatient hospitalization, Severe depression anxiety Estimated Date of D/C: 06/20/18
--- NOTE | 2018-06-18 11:37 | PN ---
DATE: 06/18/2018 SUBJECTIVE: The patient seen and examined. Interim events noted. Psychiatric followup and interventions are noted and appreciated. The patient remains in general psych unit. Awake, responsive, eating breakfast. Denies any specific complaint. No chest pain or shortness of breath. No specific issue reported by nursing staff. PHYSICAL EXAMINATION: GENERAL: The patient is in no acute distress. VITAL SIGNS: Stable. HEART: S1 and S2, normal, regular. LUNGS: Good bilateral air exchange. ABDOMEN: Soft, nontender. EXTREMITIES: No edema. No calf swelling. No tenderness. No acute ischemia. CENTRAL NERVOUS SYSTEM: Essentially unchanged. DIAGNOSTIC DATA: Available diagnostic data reviewed. ASSESSMENT AND PLAN: Overall, the patient is medically stable. Blood pressure is well-controlled. Plan as ordered. Kam Helton MD
[2018-06-18] MEDS: Risperidone M tab 1 MG PO SCH (21:04)
--- NOTE | 2018-06-19 08:34 | PN ---
DATE: 06/19/2018 SUBJECTIVE: The patient is seen and examined. Interim events noted. . The patient remains in geropsych unit. Awake and arousable. Feels okay. Denies any specific medical complaint. No chest pain or shortness of breath. PHYSICAL EXAMINATION: GENERAL: The patient is in no acute distress. VITAL SIGNS: Stable. HEART: S1 and S2, normal, regular. LUNGS: Good bilateral air exchange. ABDOMEN: Soft, nontender. EXTREMITIES: No edema. No calf swelling. No tenderness. No acute ischemia. CENTRAL NERVOUS SYSTEM: Essentially unchanged. DIAGNOSTIC DATA: Available diagnostic data reviewed. ASSESSMENT AND PLAN: Overall, the patient is medically stable. Possible discharge tomorrow. Plan as ordered. Kam Helton MD
--- NOTE | 2018-06-19 14:13 | PCM.PYCHPN ---
Psychiatric Progress Note - Psychiatric Progress Note Patient seen today, length of contact: Pt evaluated, case discussed w/ team, chart reviewed Patient Chief Complaint: pt has been reported to be somewhat paranoid last night and felt there were people around her but able to sleep with risperdal.pt seen talking to her family and appears in good spirits and is ess depressed and les anxious and denies side effects to meds . Medication Change: No Medical Record Reviewed: Yes Mental Status Examination - Cognitive Function Orientation: Person, Place, Situation, Time Memory: Intact Attention: WNL Concentration: WNL Association: WNL Fund of Knowledge: WNL - Mood Mood: Depressed, Anxious - Affect Affect: Broad - Formal Thought Process Formal Thought Process: Paranoia - Suicidal Ideation Suicidal Ideation: No - Homicidal Ideation Homicidal Ideation: No Goal/Treatment Plan - Goal/Treatment Plan Need for Continued Stay: Remain at risks for inpatient hospitalization, Severe depression anxiety Progress Toward Problem(s) and Goals/Treatment Plan: will continue to stabilize the mood with meds and engage pt in therapy.will monitor for psychosis tonight and may consider increasing risperdal if still having paranoid ideation at bedtime . Disposition as per dr dale Estimated Date of D/C: 06/20/18
[2018-06-19 18:41] VITALS: RESP 20
[2018-06-19] MEDS: Risperidone M tab 1 MG PO SCH (21:05)
[2018-06-20 05:29] VITALS: TEMP 97.9
[2018-06-20 07:52] LABS: BASO % 0.6 % (0.0-2.0); EOS # 0.2 K/uL (0.0-0.7); EOS % 2.2 % (0.0-4.0); HEMOGLOBIN 14.2 g/dL (12.0-16.0); LYMPH # 1.8 K/uL (1.0-4.3); LYMPH % 21.3 % (20.0-40.0); MEAN CELL VOLUME 89.7 fl (81.0-99.0); MEAN CORPUSCULAR HEMOGLOBIN 30.1 pg (27.0-31.0); MEAN CORPUSCULAR HGB CONC 33.5 g/dL (33.0-37.0); MEAN PLATELET VOLUME 9.8 fl (7.2-11.7); MONO # 0.5 K/uL (0.0-0.8); MONO % 6.3 % (0.0-10.0); NEUT # 5.8 K/uL (1.8-7.0); NEUT % 69.6 % (50.0-75.0); NRBC % 0.4 % (0.0-0.0); RBC 4.72 Mil/uL (3.80-5.20); RED CELL DISTRIBUTION WIDTH 13.1 % (11.5-14.5); WHITE BLOOD COUNT 8.3 K/uL (4.8-10.8)
[2018-06-20 08:30] VITALS: BP 121/75; PULSE 83
[2018-06-20 08:47] LABS: ALB/GLOB RATIO 1.2 (1.0-2.1); ALBUMIN 4.6 g/dL (3.5-5.0); ALT/SGPT 19 U/L (9-52); AST/SGOT 23 U/L (14-36); BLOOD UREA NITROGEN 23 mg/dl (7-17); CALCIUM 9.7 mg/dL (8.4-10.2); GFR NON-AFRICAN AMERICAN > 60
--- NOTE | 2018-06-20 09:31 | PCM.PYCHDC ---
Mental Status Examination - Mental Status Examination Orientation: Person, Place, Situation, Time Memory: Intact Mood: Neutral Affect: Broad Speech: Appropriate Attention: WNL Concentration: WNL Formal Thought Process: No Impairment Description of patient's judgement and insight: Fair I/J Psychotic Thoughts and Behaviors: No AH/VH/paranoia/delusions Suicidal Ideation: No Current Homicidal Ideation?: No Discharge Summary - Discharge Note Reason for Hospitalization: HPI: 73 yo female w/ h/o depression, presented w/ worsening depression, anxiety, and paranoia that someone wants to harm her grandson and recent auditory hallucinations. PPHx: Denies past psychiatric treatment or hospitalizations. Receives Lexapro from her PMD. PMHx: HTN, HLD ALL: NKDA SHx: Lives with her family, from [place], denies drugs/etoh/cig use Laboratory Data: Abnormal Lab Results 06/20/18 06/20/18 04:00 07:15 WBC 8.3 RBC 4.72 Hgb 14.2 Hct 42.4 MCV 89.7 D MCH 30.1 MCHC 33.5 RDW 13.1 Plt Count 190 MPV 9.8 Neut % (Auto) 69.6 Lymph % (Auto) 21.3 Faulkner % (Auto) 6.3 Eos % (Auto) 2.2 Baso % (Auto) 0.6 Neut # (Auto) 5.8 Lymph # (Auto) 1.8 Faulkner # (Auto) 0.5 Eos # (Auto) 0.2 Baso # (Auto) 0.0 Sodium 137 Potassium 5.1 H Chloride 96 L Carbon Dioxide 21 L Anion Gap 25 H BUN 23 H Creatinine 0.9 Est GFR ( Amer) > 60 Est GFR (Non-Af Amer) > 60 Random Glucose 107 H Calcium 9.7 Total Bilirubin 0.4 AST 23 ALT 19 Alkaline Phosphatase 81 Total Protein 8.3 H Albumin 4.6 Globulin 3.7 Albumin/Globulin Ratio 1.2 Consultations:: List each consultation separately and include: 1. Reason for request. 2. Findings. 3. Follow-up Consultations: Medicine consult Summary of Hospital Course include:: 1. Description of specific treatment plan utilized for patients during their course of treatmen. 2. Summarize the time- course for resolution of acute symptoms and/or regressed behaviors. 3. Describe issues identified and worked on during hospitalization. 4. Describe medication utilized. 5. Describe medical problems identified and treated. 6. Reassessment of suicide risk Summary of Hospital Course: Patient was admitted to the psychiatry unit. Individual and group therapy were provided. Collateral history was obtained and it was confirmed that the patient was paranoid prior to admission. She was stabilized on Lexapro 10 mg PO Daily, Risperdal 1 mg PO HS. Patient was also evaluated by medicine consult and her hypertensive medications were modified to treat her hyponatremia, now resolved. She denies acute depression/anxiety/AH/VH/paranoia/delusions. She is psychiatrically stable for discharge at this time. - Diagnosis (1) Major depressive disorder with psychotic features Current Visit: Yes Status: Acute - Final Diagnosis (DSM 5) Condition upon Discharge: STABLE DSM 5: Major Depressive Disorder w/ Psychotic Features Disposition: HOME/ ROUTINE Follow-up Treatment Plan: Major Depressive Disorder with Psychotic Features; Hyponatremia, now improved -Discharge with outpatient follow-up Prescriptions/Medication Reconciliation: amLODIPine [Norvasc] 5 mg PO DAILY #30 tab Escitalopram [Lexapro] 10 mg PO DAILY #30 tab Lisinopril [Zestril] 10 mg PO DAILY #30 tab Risperidone [Risperdal] 1 mg PO HS #30 tablet - Smoking Cessation Smoking Cessation Medication prescribed: No Reason for not providing: Not indicated - Antipsychotic Medications Pt discharged on 2 or more routine antipsychotic medications: No
--- NOTE | 2018-06-20 10:00 | PN ---
DATE: 06/20/2018 SUBJECTIVE: The patient was seen and examined. Interim events noted. Psychiatric followup and interventions are noted and appreciated. The patient remains in general psych unit. Awake, responsive, ambulating. He denies any specific complaint. No chest pain or shortness of breath. PHYSICAL EXAMINATION: GENERAL: The patient is in no acute distress. VITAL SIGNS: Stable. HEART: S1, S2 normal and regular. LUNGS: Good bilateral air exchange. ABDOMEN: Soft, nontender. EXTREMITIES: No edema. No calf swelling. No tenderness. No acute ischemia. CENTRAL NERVOUS SYSTEM: Essentially unchanged. DIAGNOSTIC DATA: Available diagnostic data reviewed. ASSESSMENT AND PLAN: Overall, the patient's general medical condition is stable. Plan as ordered. Discharge plan discussed with the patient. The patient will be followed up by primary care physician, Dr. Castillo. Kam Helton MD
== END 2018-06-20 13:00 | disposition home or self-care (01) | DRG 885 ==
LOC: H.ER 13:06 → UNDOADMIN 14:34 → H.ERHOLD 14:34 → H.STEP 19:04
PROVIDERS: ADMIT Psychiatry & Neurology Psychiatry; ATTEND Psychiatry & Neurology Psychiatry
PROC: GZHZZZZ Group Psychotherapy (ICD-10-PCS; principal; 2018-06-14)
PROC: GZ51ZZZ Individual Psychotherapy, Behavioral (ICD-10-PCS; 2018-06-14)
PROC: GZ56ZZZ Individual Psychotherapy, Supportive (ICD-10-PCS; 2018-06-14)
DX: F32.3 Major depressive disorder, single episode, severe with psychotic features (principal); R44.0 Auditory hallucinations; E87.1 Hypo-osmolality and hyponatremia; F41.9 Anxiety disorder, unspecified; I10 Essential (primary) hypertension; E87.8 Other disorders of electrolyte and fluid balance, not elsewhere classified; F03.90 Unspecified dementia, unspecified severity, without behavioral disturbance, psychotic disturbance, mood disturbance, and anxiety; Z87.440 Personal history of urinary (tract) infections; Z79.899 Other long term (current) drug therapy; Z96.659 Presence of unspecified artificial knee joint; N15.9 Renal tubulo-interstitial disease, unspecified; E78.00 Pure hypercholesterolemia, unspecified; E78.5 Hyperlipidemia, unspecified